=== PATIENT | female | born 1970 ===

== ENCOUNTER 2025-04-17 10:15 | Day surgery (SDC) | payer OTHER ==
[2025-04-11 10:34] LABS: INR 1.0
[~2025-04-17 10:15] MED LIST: ACTIVELLA 1 MG1 EACH PO; INDAPAMIDE2.5 MG PO; PROMETRIUM200 MG PO; ROSUVASTATIN CAL5 MG PO; SINGULAIR10 MG PO; ZOLOFT50 MG PO
[2025-04-17] MEDS ORDERED: POVIDONE-IODINE 118 ML BOTT TOP ONE ×2 (13:13→15:32)
[2025-04-17] MEDS ORDERED: RINGERS SOLUTION,LACTATED 1,000 ML IV SCH (19:00)
[2025-04-17 22:41] VITALS: BP 132/69; O2SAT 100
== END 2025-04-17 22:00 | disposition home or self-care (01) ==
LOC: CIR.AMB 10:15
PROVIDERS: ATTEND Obstetrics & Gynecology
DX: N72 Inflammatory disease of cervix uteri (principal); N84.0 Polyp of corpus uteri; Z88.2 Allergy status to sulfonamides